=== PATIENT | female | born 1945 | race Caucasian/White ===

== ENCOUNTER 2018-06-10 15:35 | Inpatient (IN) | payer MEDICARE, OTHER ==
[~2018-06-10] VITALS: Ht 157.5 cm; Wt 47.2 kg
[2018-06-10 16:45] LABS: BASOPHILS # (AUTO) 0.1 K/uL (0.0-8.0); BASOPHILS % (AUTO) 0.9 % (0.0-2.0); EOSINOPHILS # (AUTO) 0.2 K/uL (0.0-0.7); EOSINOPHILS % (AUTO) 2.5 % (0.0-7.0); HEMATOCRIT 40.9 % (31.2-41.9); HEMOGLOBIN 13.7 g/dL (10.9-14.3); LYMPHOCYTES # (AUTO) 1.5 K/uL (20.0-40.0); LYMPHOCYTES % (AUTO) 24.7 % (20.5-51.5); MEAN CORPUSCULAR HEMOGLOBIN 30.6 uug (24.7-32.8); MEAN CORPUSCULAR HGB CONC 33 g/dL (32.3-35.6); MEAN CORPUSCULAR VOLUME 91.7 fL (75.5-95.3); MONOCYTES # (AUTO) 0.3 K/uL (2.0-10.0); MONOCYTES % (AUTO) 5.3 % (0.0-11.0); NEUTROPHILS # (AUTO) 4.2 K/uL (1.8-8.9); NEUTROPHILS % (AUTO) 66.6 % (38.5-71.5); PLATELET COUNT (AUTO) 345 K/uL (179-408); RED BLOOD CELL COUNT(AUTO) 4.46 MIL/uL (3.63-4.92); WHITE BLOOD COUNT (AUTO) 6.3 K/uL (3.8-11.8)
[2018-06-10 16:49] LABS: CARBON DIOXIDE 26 mmol/L (21-32); CHLORIDE 107 mmol/L (98-107); CREATININE 0.8 mg/dL (0.6-1.3); GLUCOSE 128 mg/dL (74-106); POTASSIUM 3.9 mmol/L (3.5-5.1); UREA NITROGEN, BLOOD 20 mg/dL (7-18)
[2018-06-10 16:54] LABS: ALANINE AMINOTRANSFERASE 15 U/L (14-59); ALKALINE PHOSPHATASE 55 U/L (50-136); ASPARTATE AMINOTRANSFERASE 15 U/L (15-37); BILIRUBIN,DIRECT 0.1 mg/dL (0.0-0.2); BILIRUBIN,TOTAL 0.4 mg/dL (0.2-1.0); TOTAL PROTEIN, SERUM 6.6 g/dL (6.4-8.2)
--- NOTE | 2018-06-10 17:38 | NUR ---
Patient went to bathroom with family members but forgot to collect the urine, still for urine specimen at this time.
[2018-06-10] MEDS ORDERED: ASPI81TA31 PO (17:54)
[2018-06-10] MEDS ORDERED: SERT50TA PO (17:54)
[2018-06-10] MEDS ORDERED: MULT1TAB73 PO (17:54)
[2018-06-10] MEDS ORDERED: MEMA5TAB PO (17:54)
[2018-06-10] MEDS ORDERED: METF10004 PO (17:54)
[2018-06-10] MEDS ORDERED: ATOR10TA PO (17:54)
[2018-06-10] MEDS ORDERED: CLON0.5T PO (17:54)
[2018-06-10] MEDS ORDERED: ZOLP5TAB2 PO (17:54)
[2018-06-10] MEDS ORDERED: ATEN50TA PO (17:54)
[2018-06-10] MEDS ORDERED: CARB-93 PO ×3 (17:54)
[2018-06-10] MEDS ORDERED: ARED PO (17:54)
[2018-06-10] MEDS ORDERED: METF500T6 PO (17:54)
[2018-06-10] MEDS ORDERED: AMLO5TAB2 PO (17:54)
[2018-06-10] MEDS ORDERED: CYAN100T3 PO (17:54)
[2018-06-10] MEDS ORDERED: MIRT15TA PO (17:54)
[2018-06-10] MEDS ORDERED: CHOL500050 PO (17:54)
--- NOTE | 2018-06-10 18:50 | NUR ---
No acute change in condition seen, still for transfer to 2nd floor. family members x2 are at bedside.
--- NOTE | 2018-06-10 19:00 | NUR ---
ADMITTED IN THE MED SURG FLOOR UNDER THE CARE OF DR. GARCIA, BELONGING LIST DONE.
[2018-06-10 19:45] VITALS: BP 119/78
[2018-06-10] MEDS ORDERED: Medication Not On Formulary EA (Cholecalciferol (Vitamin D3) (Vitamin D3 CAPSULE) 50,000 PO SCH (20:30)
[2018-06-10] MEDS ORDERED: ACETAMINOPHEN 325 MG TABLET PO PRN (20:30)
[2018-06-10] MEDS ORDERED: CARBIDOPA/LEVODOPA 25-100MG TABLET PO SCH (21:00)
[2018-06-10] MEDS: ATORVASTATIN 10 MG TABLET PO SCH (21:02)
[2018-06-10] MEDS: DOCUSATE SODIUM 100 MG CAPSULE PO SCH (21:02)
[2018-06-10] MEDS: ZOLPIDEM 5 MG TABLET PO SCH (21:02)
--- NOTE | 2018-06-11 | NUR ---
PATIENT SLEEP ON AND OFF, PATIENT AWAKE BUT CONFUSED, DUE TO MENTAL HEALTH CONDITION, CONT TO REORIENT PATIENT, FREQUENT VISUAL CHECK DONE, KEPT CLEAN AND DRY, INCONTINENT OF BOWEL AND BLADDER, CONT TO MONITOR. NO S/S OF PAIN NOR DISCOMFORT.
[2018-06-11 04:00] VITALS: BP 122/65
[2018-06-11 06:09] LABS: BASOPHILS % (AUTO) 0.8 % (0.0-2.0); EOSINOPHILS # (AUTO) 0.1 K/uL (0.0-0.7); EOSINOPHILS % (AUTO) 1.8 % (0.0-7.0); HEMATOCRIT 39.5 % (31.2-41.9); HEMOGLOBIN 13.5 g/dL (10.9-14.3); LYMPHOCYTES # (AUTO) 1.8 K/uL (20.0-40.0); LYMPHOCYTES % (AUTO) 31.4 % (20.5-51.5); MEAN CORPUSCULAR HEMOGLOBIN 30.5 uug (24.7-32.8); MEAN CORPUSCULAR HGB CONC 34 g/dL (32.3-35.6); MEAN CORPUSCULAR VOLUME 89.1 fL (75.5-95.3); MONOCYTES # (AUTO) 0.3 K/uL (2.0-10.0); NEUTROPHILS # (AUTO) 3.6 K/uL (1.8-8.9); PLATELET COUNT (AUTO) 311 K/uL (179-408); RED BLOOD CELL COUNT(AUTO) 4.44 MIL/uL (3.63-4.92); WHITE BLOOD COUNT (AUTO) 5.9 K/uL (3.8-11.8)
[2018-06-11] MEDS: PANTOPRAZOLE SODIUM 40 MG TABLET.DR PO SCH (06:43)
--- NOTE | 2018-06-11 06:56 | NUR ---
PATIENT AWAKE MOST OF THE NIGHT, RESTLESS IN BED, CONT TO MONITOR CLOSELY, NO S/S OF PAIN NOR DISCOMFORT, TURN AND REPOSITION, KEPT CLEAN DRY AND COMFORTABLE, PATIENT PULLED OUT IV, INCONTINET OF BLADDER, URINE SENT TO LAB IN AM. ENDORSED TO NEXT SHIFT.
[2018-06-11 07:08] LABS: ALANINE AMINOTRANSFERASE 12 U/L (14-59); ALKALINE PHOSPHATASE 57 U/L (50-136); ASPARTATE AMINOTRANSFERASE 16 U/L (15-37); BILIRUBIN,TOTAL 0.6 mg/dL (0.2-1.0); CARBON DIOXIDE 26 mmol/L (21-32); CHLORIDE 109 mmol/L (98-107); CHOLESTEROL 99 mg/dL (<200); CREATININE 0.7 mg/dL (0.6-1.3); GLUCOSE 103 mg/dL (74-106); HDL CHOLESTEROL 50 mg/dL (40-60); MAGNESIUM 1.8 mg/dL (1.8-2.4); POTASSIUM 3.3 mmol/L (3.5-5.1); TOTAL PROTEIN, SERUM 6.7 g/dL (6.4-8.2); TRIGLYCERIDES 51 MG/DL (30-150); UREA NITROGEN, BLOOD 19 mg/dL (7-18)
[2018-06-11 07:25] LABS: IRON, SERUM 55 ug/dL (50-175)
[2018-06-11 07:28] LABS: *BILIRUBIN,URIN NEGATIVE (NEGATIVE); *BLOOD, URINE NEGATIVE (NEGATIVE); *CLARITY,URINE CLOUDY (CLEAR); *COLOR,URINE YELLOW (YELLOW); *KETONES,URINE NEGATIVE (NEGATIVE); *PROTEIN,URINE NEGATIVE (NEGATIVE); LEUKOCYTE ESTERASE ,URINE NEGATIVE (NEGATIVE); NITRITE, URINE NEGATIVE (NEGATIVE); PH,URINE 7.5 (5.0-8.0); UGLUCOSE NEGATIVE (NEGATIVE)
[2018-06-11 07:35] LABS: BACTERIA,URINE FEW /HPF (NONE SEEN); RBC,URINE 0-3 /HPF (0-3); SQUAMOUS EPITHELIAL CELL,UR FEW /HPF (NONE SEEN); URINE AMORPHOUS PHOSPHATES MODERATE /HPF; WBC,URINE 0-3 /HPF (0-3)
--- NOTE | 2018-06-11 07:46 | NUR ---
RECEIVED SHIFT REPORT FROM DUNAE ELLER. PT SLEEPING IN BED, DOES NOT APPEAR TO BE IN APPARENT DISTRESS. BED IN LOW AND LOCKED POSITION WITH BILATERAL UPPER SIDERAILS UP. CALL LIGHT WITHIN REACH. PT DOES NOT HAVE AN ESTABLISHED IV ACCESS, WILL INSERT AND MAINTAIN IV ACCESS.
[2018-06-11] MEDS: METFORMIN HCL 500 MG TABLET PO SCH (08:18)
[2018-06-11] MEDS: CYANOCOBALAMIN 100 MCG TABLET PO SCH (08:18)
[2018-06-11] MEDS: ASPIRIN 81 MG TAB.CHEW PO SCH (08:18)
[2018-06-11] MEDS: CLONAZEPAM 0.5 MG TABLET PO SCH ×2 (08:18→16:21)
[2018-06-11] MEDS: SERTRALINE HCL 50 MG TABLET PO SCH (08:19)
[2018-06-11] MEDS: MULTIVITAMINS,THERAPEUTIC TABLET PO SCH (08:19)
[2018-06-11] MEDS: MEMANTINE HCL 5 MG TABLET PO SCH ×2 (08:19→16:21)
[2018-06-11] MEDS ORDERED: Medication Not On Formulary EA (Multivitamins (Multivitamin) 1 EACH) PO SCH (09:00)
[2018-06-11] MEDS ORDERED: CARBIDOPA/LEVODOPA 25-100MG TABLET PO SCH ×3 (09:00→17:00)
--- NOTE | 2018-06-11 09:19 | NUR ---
DR. HAJI NOTIFIED OF PT'S K 3.3. AWAITING FOR NEW ORDERS. NEW IV ACCESS ESTABLISHED 20 G R FOREARM. IV ACCESS SECURED AND WRAPPED WITH ROLL GAUZE TO PREVENT DISLODGEMENT.
--- NOTE | 2018-06-11 09:47 | NUR ---
SPOKE WITH DR. HAJI IN PERSON RE PT'S K 3.3. NNO AT THIS TIME.
[2018-06-11 11:10] VITALS: BP 110/84
--- NOTE | 2018-06-11 11:16 | NUR ---
PT GOT UP WITH PT TODAY. AMBULATED WITH MAX ASSIST TO ROOM DOOR AND BACK TO BED. PT VERY CONFUSED, BUT ABLE TO FOLLOW INSTRUCTIONS. PROVIDE SAFETY PRECAUTION IF PT IS GETTING OOB.
[2018-06-11] MEDS ORDERED: POTASSIUM CHLORIDE 20 MEQ TAB.PRT.SR PO ONE (11:30)
[2018-06-11] MEDS: MIRTAZAPINE 15 MG TABLET PO SCH ×2 (12:05→18:39)
[2018-06-11] MEDS: AMLODIPINE 5 MG TABLET PO SCH (12:06)
[2018-06-11] MEDS ORDERED: CARB-93 PO (15:36)
[2018-06-11 15:59] VITALS: BP 123/82
[2018-06-11] MEDS: CARBIDOPA/LEVODOPA 25-100MG TABLET PO SCH ×2 (16:21→22:03)
[2018-06-11] MEDS ORDERED: QUET25TA PO (16:46)
--- NOTE | 2018-06-11 19:08 | NUR ---
SHIFT REPORT GIVEN TO DUANE RICH. PT RESTING IN BED AT THIS TIME, DOES NOT APPEAR TO BE IN APPARENT DISTRESS. BED IN LOW AND LOCKED POSITION WITH BILATERAL UPPER SIDERAILS UP. CALL LIGHT WITHIN REACH. NEW IV ACCESS ESTABLISHED 22 G R FOREARM, SECURED AND WRAPPED USING COBAND TO PREVENT DISLODGEMENT.
--- NOTE | 2018-06-11 19:35 | NUR ---
RECEIVED PATIENT ASLEEP BUT EASILY AWAKEN, NO S/S OF PAIN NOR DISCOMFORT, KEPT CLEAN AND DRY. FREQUENT VISUAL CHECK DONE. CONT TO MONITOR.
[2018-06-11 20:26] VITALS: BP 113/76
[2018-06-11] MEDS: DOCUSATE SODIUM 100 MG CAPSULE PO SCH (22:02)
[2018-06-11] MEDS: ATORVASTATIN 10 MG TABLET PO SCH (22:02)
[2018-06-11] MEDS: ZOLPIDEM 5 MG TABLET PO SCH (22:02)
--- NOTE | 2018-06-12 03:05 | NUR ---
PATIENT AWAKE, REMOVES CLOTHING DIAPERS, FACIAL EXPRESSION RELAX, NO S/S OF PAIN, KEPT CLEAN AND DRY, CONT TO MONITOR.
--- NOTE | 2018-06-12 04:05 | NUR ---
PATIENT PULLED OUT IV HEPLOCK, REFUSED TO REINSERT NEW ONE, PATIENT RESIST WITH CARE, WILL CONT TO OFFER.
[2018-06-12 04:34] VITALS: BP 122/90
--- NOTE | 2018-06-12 06:06 | NUR ---
PATIENT AWAKE, NO S/S OF PAIN AT THIS TIME. RESTLESS IN BED, REMOVES CLOTHING, THROW PILLOWS AND BLANKETS ON THE FLOOR, UNABLE TO REINSERT IV HEPLOCK AT THIS TIME. PATIENT PICKS ON HEPLOCK RISK FOR INJURY, WILL CONTINUE TO OFFER.
[2018-06-12] MEDS: PANTOPRAZOLE SODIUM 40 MG TABLET.DR PO SCH (06:12)
[2018-06-12] MEDS ORDERED: ERGOCALCIFEROL 50,000 UNIT CAPSULE PO SCH (09:00)
[2018-06-12] MEDS: CLONAZEPAM 0.5 MG TABLET PO SCH ×2 (09:20→16:14)
[2018-06-12] MEDS: CYANOCOBALAMIN 100 MCG TABLET PO SCH (09:20)
[2018-06-12] MEDS: MEMANTINE HCL 5 MG TABLET PO SCH ×2 (09:21→16:14)
[2018-06-12] MEDS: MULTIVITAMINS,THERAPEUTIC TABLET PO SCH (09:21)
[2018-06-12] MEDS: SERTRALINE HCL 50 MG TABLET PO SCH (09:21)
[2018-06-12] MEDS: METFORMIN HCL 500 MG TABLET PO SCH (09:21)
[2018-06-12] MEDS: ASPIRIN 81 MG TAB.CHEW PO SCH (09:21)
[2018-06-12] MEDS: CARBIDOPA/LEVODOPA 25-100MG TABLET PO SCH ×4 (09:21→20:19)
--- NOTE | 2018-06-12 10:00 | NUR ---
PATIENT HAS NO IV ACCESS, MD AWARE/NOTIFIED.
[2018-06-12 11:16] VITALS: BP 117/80
[2018-06-12] MEDS: MIRTAZAPINE 15 MG TABLET PO SCH ×2 (12:14→18:07)
[2018-06-12] MEDS: AMLODIPINE 5 MG TABLET PO SCH (12:14)
[2018-06-12 15:10] VITALS: BP 123/73
--- NOTE | 2018-06-12 17:00 | NUR ---
SON AT BEDSIDE.
--- NOTE | 2018-06-12 18:03 | NUR ---
PATIENT ALERT, IN NO DISTRESS. PATIENT COMPLIANT WITH MEDICATIONS. VS STABLE, AFEBRILE. PATIENT KEPT CLEAN/DRY. SAFETY MEASURES IN PLACE.
--- NOTE | 2018-06-12 19:25 | NUR ---
RECEIVED PT ON BED. PT AWAKE, ALERT, ORIENTEDX1.ALERT TO HER NAME. PT SEEMS RESTLESS. TURNING SIDE TO SIDE ON BED. TRYING TO GET OUT OF THE BED. CALL LIGHT WITHIN REACH. BED ALARM ON, LOW POSITION AND SIDE RAILS UPX2. WILL CONTINUE TO MONITOR.
[2018-06-12 20:00] VITALS: BP 111/68
[2018-06-12] MEDS: ZOLPIDEM 5 MG TABLET PO SCH (20:18)
[2018-06-12] MEDS: DOCUSATE SODIUM 100 MG CAPSULE PO SCH (20:19)
[2018-06-12] MEDS: ATORVASTATIN 10 MG TABLET PO SCH (20:19)
[2018-06-13 06:02] VITALS: BP 133/83
[2018-06-13] MEDS: PANTOPRAZOLE SODIUM 40 MG TABLET.DR PO SCH (06:28)
--- NOTE | 2018-06-13 06:40 | NUR ---
PT SLEPT THROUGHOUT THE SHIFT. PT SHOWS NO SIGNS OF DISTRESS.PT STABLE. VITAL SIGNS WNL.PRESCRIBED MEDICATION GIVEN AND PT TOLERATED IT WELL. SAFETY AND COMFORT PROVIDED.CALL LIGHT WITHIN REACH AND BED ALARM ON, SIDERAILSUPX2.PT HAVE DEEP BRAIN STIMULATOR ON HER CHEST. WILL ENDORSE ACCORDINGLY TO INCOMING NURSE FOR CONTINUITY OF CARE.
[2018-06-13] MEDS: METFORMIN HCL 500 MG TABLET PO SCH (08:37)
[2018-06-13] MEDS: CARBIDOPA/LEVODOPA 25-100MG TABLET PO SCH ×3 (08:37→16:19)
[2018-06-13] MEDS: CLONAZEPAM 0.5 MG TABLET PO SCH ×2 (08:37→16:19)
[2018-06-13] MEDS: ASPIRIN 81 MG TAB.CHEW PO SCH (08:38)
[2018-06-13] MEDS: MEMANTINE HCL 5 MG TABLET PO SCH ×2 (08:38→16:19)
[2018-06-13] MEDS: MULTIVITAMINS,THERAPEUTIC TABLET PO SCH (08:38)
[2018-06-13] MEDS: SERTRALINE HCL 50 MG TABLET PO SCH (08:38)
[2018-06-13] MEDS: CYANOCOBALAMIN 100 MCG TABLET PO SCH (08:38)
[2018-06-13 11:44] VITALS: BP 117/76
[2018-06-13] MEDS: MIRTAZAPINE 15 MG TABLET PO SCH (13:15)
[2018-06-13] MEDS ORDERED: METF500T6 PO (13:16)
[2018-06-13] MEDS: AMLODIPINE 5 MG TABLET PO SCH (13:16)
[2018-06-13] MEDS ORDERED: ACET325T53 PO (13:16)
[2018-06-13 15:06] VITALS: BP 126/68
--- NOTE | 2018-06-13 15:42 | NUR ---
PT DISCHARGED TO [facility] 2 RM [id number]. REPORT GIVEN TO DUANE ATKINSON. AMBULANCE TRANSPORT TBD OF THIS TIME. PT UNABLE TO SIGN DISCHARGE PAPERS, WITNESSED BY ANOTHER LICENSED RN. BELONGING LIST DONE. SON AWARE OF DISCHARGE.
--- NOTE | 2018-06-13 17:32 | NUR ---
PT LEFT THE UNIT VIA GURNEY, PICKED UP BY AMBULANCE. PT ALERT, IN NO DISTRESS.
== END 2018-06-13 17:30 | DRG 57 ==
LOC: ER 15:36 → MED 18:11
PROVIDERS: ADMIT Internal Medicine; ATTEND Internal Medicine
DX: G31.83 Neurocognitive disorder with Lewy bodies (principal); D68.59 Other primary thrombophilia; E44.0 Moderate protein-calorie malnutrition; R62.7 Adult failure to thrive; F02.80 Dementia in other diseases classified elsewhere, unspecified severity, without behavioral disturbance, psychotic disturbance, mood disturbance, and anxiety; E11.9 Type 2 diabetes mellitus without complications; Z79.84 Long term (current) use of oral hypoglycemic drugs; Z79.899 Other long term (current) drug therapy; M79.652 Pain in left thigh; Z96.89 Presence of other specified functional implants; S32.019D Unspecified fracture of first lumbar vertebra, subsequent encounter for fracture with routine healing; W19.XXXD Unspecified fall, subsequent encounter; E87.6 Hypokalemia; Z79.82 Long term (current) use of aspirin; I67.2 Cerebral atherosclerosis; I10 Essential (primary) hypertension
CPT/HCPCS: 36415; 70450; 71045; 73551; 82746; 83550; 83735; 84100; 84443; 85025; 85730; 87086; 93005; 97110; 97116; 97165; 97530; A4663; C1758